=== PATIENT | male | born 1960 | race Caucasian/White ===

== ENCOUNTER 2017-11-30 03:01 | Emergency (ER) | payer OTHER ==
[~2017-11-30] VITALS: Ht 172.7 cm; Wt 123.0 kg
[~2017-11-30 03:01] MED LIST: ADVAIR 500/501 DISK; ADVAIR 500/501 DISK IH; ALBUTEROL; ALBUTEROL SULF8.5 GM IH; ALDACTONE25 MG PO; ASPIRIN325 MG PO; ATIVAN2 MG PO; Advair HFA 230/21 IH; Ativan PO; BUMETANIDE1 MG PO; BUMETANIDE2 MG PO; BUMEX1 MG PO; CARVEDILOL25 MG PO; CLONAZEPAM0.5 MG PO; CLONAZEPAM1 MG PO; COREG25 M1 PO; CREON DR 12,001 EAC1 PO; DIGITEK250 MC2 PO; DIGOXIN250 MCG PO; DILAUDID4 MG PO; DIOVAN320 MG PO; Dilaudid PO; ENALAPRIL MALEAT5 MG PO; ERGOCALCIF50000 UNIT PO; FENOFIBRATE200 M1 PO; FLEXERIL10 MG PO; GLUCOPHAGE XR750 MG PO; K-TAB10 MEQ PO; KLONOPIN0.5 M1 PO; KLONOPIN1 MG PO; KLOR-CON 1010 ME1 PO; LANOXIN250 MCG PO; LANTUS 10100 UNITS/ SC; LANTUS 3 M100 UNITS1 SC; LASIX80 MG PO; LEVOFLOXACIN750 MG PO; LISINOPRIL40 MG PO; LISINOPRIL5 MG PO; Lasix PO; METFORMIN HCL500 MG PO; METFORMIN HCL750 MG PO; METOLAZONE2.5 MG PO; Micro-K,K-Tab,K-Dur, PO; NORCO 5/3251 TABLET PO; NOVOLOG 10100 UNITS/ SC; NOVOLOG MI100 UNIT/4 SC; PANTOPRAZOLE SO40 MG PO; POTASSIUM CHLO10 ME4 PO; PRILOSEC20 MG PO; PRINIVIL5 MG PO; PROTONIX40 MG PO; PROVENTIL,2.5 MG/3 M IH; Protonix PO; RANITIDINE HCL150 MG PO; REQUIP0.5 MG PO; REVATIO20 MG PO; ROPINIROLE HCL0.5 MG PO; Revatio PO; Rocephin IV; SERTRALINE HCL50 MG PO; SILDENAFIL PO; SILDENAFIL20 MG PO; SIMVASTATIN20 MG PO; SPIRONOLACTONE25 MG PO; TIZANIDINE HCL4 MG PO; VALSARTAN160 MG PO; VASOTEC5 MG PO; VENTOLIN HFA; VENTOLIN HFA18 GM IH; VIT D PO; VITAMIN D250000 UNIT PO; Vitamin D PO; ZANAFLEX4 M1 PO; ZANTAC150 MG PO; ZITHROMAX250 MG PO; ZOCOR20 MG PO; ZOLOFT50 MG PO; Zaroxolyn,Diulo PO
[2017-11-30 04:15] VITALS: BP 113/73
== END 2017-11-30 04:15 | disposition home or self-care (01) ==
LOC: EME 03:01
PROC: 0HQKXZZ Repair Right Lower Leg Skin, External Approach (ICD-10-PCS; principal; 2017-11-30)
DX: I83.891 Varicose veins of right lower extremity with other complications (principal); J45.909 Unspecified asthma, uncomplicated; I11.0 Hypertensive heart disease with heart failure; I50.9 Heart failure, unspecified; Z88.1 Allergy status to other antibiotic agents
CPT/HCPCS: 99281; 99283

== ENCOUNTER 2017-12-20 12:20 | Observation (INO) | payer OTHER ==
[~2017-12-20] VITALS: Ht 172.7 cm; Wt 121.3 kg
[2017-12-20 12:49] LABS: COMMENTS - BLOOD GASES A+C+; DEVICE NC; O2 FLOW 2 L/MIN; SITE LR
[2017-12-20 12:50] LABS: BICARBONATE 31.8 mEq/L (22-26); CARBOXY HGB 2.6 % (0-5); METHEMOGLOBIN 0.9 % (0-1.5); PCO2 49 mm Hg (35-45); PO2 80 mm Hg (80-100); TOTAL RESP RATE 15 resp/min; pH 7.42 (7.35-7.45)
[2017-12-20 12:51] LABS: BASE EXCESS 6.4 mEq/L (-3 to +3)
[2017-12-20 14:10] LABS: BASOPHIL (%) 0.4 % (0-1); EOSINOPHIL (%) 3.2 % (0-5); EOSINOPHIL COUNT 0.2 K/uL (0-0.3); HEMATOCRIT 28.1 % (38.0-50.0); HEMOGLOBIN 8.8 G/DL (12.5-16.6); IMMATURE GRANULOCYTE (%) 0.3 % (0.0-0.7); LYMPHOCYTE (%) 13.7 % (15-42); LYMPHOCYTE COUNT 0.9 K/uL (1.0-2.8); MCHC 31.3 G/DL (30.0-36.0); MCV 79.8 FL (86-99); MONOCYTE (%) 7.7 % (3-12); MONOCYTE COUNT 0.5 K/uL (0-0.8); NEUTROPHIL (%) 74.7 % (45-76); NEUTROPHIL COUNT 5.1 K/uL (1.8-6.4); PLATELET COUNT 126 K/uL (156-360); RBC DIS.WIDTH-CV 16.5 % (11.8-14.6); RBC DIS.WIDTH-SD 48.4 % (39-53); RED BLOOD COUNT 3.52 M/uL (4.00-5.50); WHITE BLOOD COUNT 6.8 K/uL (4.1-10.2)
[2017-12-20 14:18] LABS: ALBUMIN 3.1 g/dL (3.2-4.8); CHLORIDE 87 mEq/L (99-109); POTASSIUM 5.6 mEq/L (3.7-5.4); SODIUM 124 mEq/L (136-147)
[2017-12-20 14:21] LABS: GLUCOSE 118 mg/dL (70-99); TOTAL PROTEIN 7.2 g/dL (6.4-8.3)
[2017-12-20 14:24] LABS: ALKALINE PHOSPHATASE 156 IU/L (3-129); CREATININE 2.2 mg/dL (0.6-1.3); GFR ESTIMATE (CALCULATED) 33 mL/min/ (58.99-99999)
[2017-12-20 14:25] LABS: UREA NITROGEN (BUN) 66 mg/dL (9-23)
[2017-12-20 14:26] LABS: AST (GOT) 20 IU/L (2-34)
[2017-12-20 14:27] LABS: ALT (GPT) 13 IU/L (3-49)
[2017-12-20 14:30] LABS: TROP-I INTERPRETATION NEGATIVE; TROPONIN-I 0.04 ng/mL (0.0-0.30)
[2017-12-20 14:33] LABS: DIGOXIN 0.4 ng/mL (0.8-2.0)
[2017-12-20 15:05] LABS: APPEARANCE CLEAR ((CLEAR)); BILIRUBIN NEGATIVE; BLOOD NEGATIVE; COLOR YELLOW ((YELLOW)); GLUCOSE (STRIP) NEGATIVE; KETONES NEGATIVE; LEUKOCYTES NEGATIVE; NITRITE NEGATIVE; PROTEIN (STRIP) NEGATIVE; SPECIFIC GRAVITY 1.006 (1.000-1.030); UCUL ADDED? NO; UROBILINOGEN 0.2 MG/DL (0.2-1.0)
[2017-12-20 16:43] LABS: CHLORIDE 87 mEq/L (99-109); POTASSIUM 5.6 mEq/L (3.7-5.4); SODIUM 124 mEq/L (136-147)
[2017-12-20 16:45] LABS: GLUCOSE 118 mg/dL (70-99)
[2017-12-20 16:49] LABS: CREATININE 2.2 mg/dL (0.6-1.3); GFR ESTIMATE (CALCULATED) 33 mL/min/ (58.99-99999)
[2017-12-20] MEDS ORDERED: ROPINIROLE HCL1 MG PO (16:49)
[2017-12-20 16:50] LABS: UREA NITROGEN (BUN) 76 mg/dL (9-23)
[2017-12-20] MEDS ORDERED: BUMEX1 MG PO (16:51)
[2017-12-20] MEDS ORDERED: COLACE100 MG PO (16:58)
[2017-12-20] MEDS ORDERED: METOLAZONE2.5 MG PO (16:59)
[2017-12-20] MEDS ORDERED: LISINOPRIL5 MG PO (17:00)
[2017-12-20 17:57] VITALS: BP 95/49
[2017-12-20 19:09] VITALS: BP 104/56
[2017-12-20 19:40] LABS: UR CREATININE CONCENTRATION 30.4 MG/DL
[2017-12-20 23:27] VITALS: BP 108/59
[2017-12-21 04:18] VITALS: BP 117/61
[2017-12-21 05:21] LABS: BASOPHIL (%) 0.3 % (0-1); EOSINOPHIL (%) 2.2 % (0-5); EOSINOPHIL COUNT 0.2 K/uL (0-0.3); HEMATOCRIT 29.1 % (38.0-50.0); HEMOGLOBIN 9.1 G/DL (12.5-16.6); IMMATURE GRANULOCYTE (%) 0.4 % (0.0-0.7); LYMPHOCYTE (%) 14.2 % (15-42); MCH 24.8 PG (29.0-34.0); MCHC 31.3 G/DL (30.0-36.0); MCV 79.3 FL (86-99); MONOCYTE (%) 7.5 % (3-12); MONOCYTE COUNT 0.5 K/uL (0-0.8); NEUTROPHIL (%) 75.4 % (45-76); NEUTROPHIL COUNT 5.5 K/uL (1.8-6.4); PLATELET COUNT 153 K/uL (156-360); RBC DIS.WIDTH-CV 16.5 % (11.8-14.6); RBC DIS.WIDTH-SD 47.5 % (39-53); RED BLOOD COUNT 3.67 M/uL (4.00-5.50); WHITE BLOOD COUNT 7.2 K/uL (4.1-10.2)
[2017-12-21 05:58] LABS: CHLORIDE 87 MEQ/L (99-109); GFR ESTIMATE (CALCULATED) 37 mL/min/ (58.99-99999); GLUCOSE 126 mg/dL (70-99); POTASSIUM 5.7 MEQ/L (3.7-5.4); SODIUM 124 MEQ/L (136-147); UREA NITROGEN (BUN) 64 mg/dL (9-23)
[2017-12-21 07:39] VITALS: BP 99/58
[2017-12-21 11:45] VITALS: BP 102/59
[2017-12-21 16:25] LABS: CHLORIDE 86 MEQ/L (99-109); POTASSIUM 5.5 MEQ/L (3.7-5.4); SODIUM 122 MEQ/L (136-147)
[2017-12-21 16:30] LABS: CREATININE 1.9 MG/DL (0.6-1.3); GFR ESTIMATE (CALCULATED) 39 mL/min/ (58.99-99999); UREA NITROGEN (BUN) 65 mg/dL (9-23)
[2017-12-21 16:31] LABS: GLUCOSE 214 mg/dL (70-99)
[2017-12-21 18:50] VITALS: BP 104/60
[2017-12-21 22:55] VITALS: BP 121/68
[2017-12-22 03:17] VITALS: BP 108/58
[2017-12-22 06:39] LABS: BASOPHIL (%) 0.4 % (0-1); EOSINOPHIL (%) 2.4 % (0-5); EOSINOPHIL COUNT 0.2 K/uL (0-0.3); HEMATOCRIT 30.6 % (38.0-50.0); IMMATURE GRANULOCYTE (%) 0.4 % (0.0-0.7); LYMPHOCYTE (%) 14.8 % (15-42); LYMPHOCYTE COUNT 1.1 K/uL (1.0-2.8); MCH 26.1 PG (29.0-34.0); MCHC 32.7 G/DL (30.0-36.0); MCV 79.9 FL (86-99); MONOCYTE (%) 9.2 % (3-12); MONOCYTE COUNT 0.7 K/uL (0-0.8); NEUTROPHIL (%) 72.8 % (45-76); NEUTROPHIL COUNT 5.2 K/uL (1.8-6.4); PLATELET COUNT 168 K/uL (156-360); RBC DIS.WIDTH-CV 16.7 % (11.8-14.6); RBC DIS.WIDTH-SD 48.2 % (39-53); RED BLOOD COUNT 3.83 M/uL (4.00-5.50); WHITE BLOOD COUNT 7.2 K/uL (4.1-10.2)
[2017-12-22 07:01] LABS: CHLORIDE 89 MEQ/L (99-109); CREATININE 1.9 MG/DL (0.6-1.3); GFR ESTIMATE (CALCULATED) 39 mL/min/ (58.99-99999); GLUCOSE 132 mg/dL (70-99); MAGNESIUM 1.9 mg/dl (1.3-2.7); PHOSPHORUS 5.4 mg/dL (2.5-4.9); POTASSIUM 5.4 MEQ/L (3.7-5.4); SODIUM 126 MEQ/L (136-147); UREA NITROGEN (BUN) 64 mg/dL (9-23)
[2017-12-22 07:27] VITALS: BP 119/67
[2017-12-22 07:53] LABS: IRON 45 MCG/DL (35-150); TRANSFERRIN (TIBC) 307.9 mg/dL (215-380); TRANSFERRIN SATUR. 15 % (20-55)
[2017-12-22 07:59] LABS: FOLIC ACID (FOLATE) 8.7 NG/ML (5.0-22.0)
[2017-12-22 08:09] LABS: FERRITIN 104 NG/ML (22-322)
[2017-12-22 11:35] VITALS: BP 121/66
[2017-12-22] MEDS ORDERED: ELAVIL10 MG PO (13:02)
[2017-12-22 15:07] VITALS: BP 115/62
[2017-12-22 19:32] VITALS: BP 116/70
[2017-12-22 23:09] VITALS: BP 115/61
[2017-12-23 03:12] VITALS: BP 118/67
[2017-12-23 06:06] LABS: BASOPHIL (%) 0.2 % (0-1); EOSINOPHIL (%) 2.3 % (0-5); EOSINOPHIL COUNT 0.2 K/uL (0-0.3); HEMATOCRIT 29.5 % (38.0-50.0); HEMOGLOBIN 9.5 G/DL (12.5-16.6); IMMATURE GRANULOCYTE (%) 0.3 % (0.0-0.7); LYMPHOCYTE (%) 12.9 % (15-42); LYMPHOCYTE COUNT 0.9 K/uL (1.0-2.8); MCHC 32.2 G/DL (30.0-36.0); MCV 80.8 FL (86-99); MONOCYTE (%) 10.5 % (3-12); MONOCYTE COUNT 0.7 K/uL (0-0.8); NEUTROPHIL (%) 73.8 % (45-76); NEUTROPHIL COUNT 4.9 K/uL (1.8-6.4); PLATELET COUNT 167 K/uL (156-360); RBC DIS.WIDTH-CV 16.7 % (11.8-14.6); RBC DIS.WIDTH-SD 49.1 % (39-53); RED BLOOD COUNT 3.65 M/uL (4.00-5.50); WHITE BLOOD COUNT 6.6 K/uL (4.1-10.2)
[2017-12-23 06:25] LABS: CHLORIDE 93 MEQ/L (99-109); CREATININE 1.5 MG/DL (0.6-1.3); GFR ESTIMATE (CALCULATED) 51 mL/min/ (58.99-99999); GLUCOSE 156 mg/dL (70-99); SODIUM 130 MEQ/L (136-147); UREA NITROGEN (BUN) 55 mg/dL (9-23)
[2017-12-23 07:59] VITALS: BP 130/71
[2017-12-23] MEDS ORDERED: SAMSCA15 MG PO (09:52)
[2017-12-23] MEDS ORDERED: LASIX40 MG PO (09:56)
[2017-12-23 15:50] VITALS: BP 124/74
== END 2017-12-23 17:23 | disposition home or self-care (01) ==
LOC: EME 12:20 → EDOF 15:46 → 4EAST 15:46 → 3EAST 15:46 → CANRESERV 15:53 → ENRESERV 15:53 → 4EAST 17:48 → ENRESERV 12-21 20:21 → 3EAST 12-21 22:22
PROVIDERS: Emergency Medicine; Internal Medicine; Internal Medicine Nephrology
PROC: B246ZZZ Ultrasonography of Right and Left Heart (ICD-10-PCS; principal; 2017-12-21)
DX: E86.1 Hypovolemia (principal); N17.9 Acute kidney failure, unspecified; I95.9 Hypotension, unspecified; E87.1 Hypo-osmolality and hyponatremia; E87.5 Hyperkalemia; I13.0 Hypertensive heart and chronic kidney disease with heart failure and stage 1 through stage 4 chronic kidney disease, or unspecified chronic kidney disease; I50.20 Unspecified systolic (congestive) heart failure; N18.2 Chronic kidney disease, stage 2 (mild); E11.22 Type 2 diabetes mellitus with diabetic chronic kidney disease; J96.11 Chronic respiratory failure with hypoxia; E86.0 Dehydration; I25.10 Atherosclerotic heart disease of native coronary artery without angina pectoris; I25.2 Old myocardial infarction; I25.5 Ischemic cardiomyopathy; I36.1 Nonrheumatic tricuspid (valve) insufficiency; I27.20 Pulmonary hypertension, unspecified; E78.5 Hyperlipidemia, unspecified; D64.9 Anemia, unspecified; K21.9 Gastro-esophageal reflux disease without esophagitis; G89.29 Other chronic pain; E66.01 Morbid (severe) obesity due to excess calories; Z68.41 Body mass index [BMI] 40.0-44.9, adult; H66.90 Otitis media, unspecified, unspecified ear; N52.9 Male erectile dysfunction, unspecified; I48.91 Unspecified atrial fibrillation; Z79.4 Long term (current) use of insulin; J43.9 Emphysema, unspecified; M54.5 Low back pain; K86.1 Other chronic pancreatitis; D69.6 Thrombocytopenia, unspecified; F41.9 Anxiety disorder, unspecified; Z88.1 Allergy status to other antibiotic agents; Z88.8 Allergy status to other drugs, medicaments and biological substances; Z90.49 Acquired absence of other specified parts of digestive tract; Z95.810 Presence of automatic (implantable) cardiac defibrillator; Z87.891 Personal history of nicotine dependence; Z83.3 Family history of diabetes mellitus
CPT/HCPCS: 36600; 71046; 80048; 80048 91; 80053; 80162; 81003; 82436; 82570; 82607; 82728; 82746; 82948; 83540; 83605; 83735; 83880; 84100; 84133; 84300; 84466; 84484; 85025; 87040; 93005; 93306; 94640; 94760; 94799; 99281; 99285; G0378; J1815; J7030; J7040; J7050